=== PATIENT | female | born 1965 | race Caucasian/White ===

== ENCOUNTER 2017-05-14 13:24 | Inpatient (IN) | payer MEDICAID ==
[~2017-05-14] VITALS: Ht 170.2 cm; Wt 124.9 kg
[~2017-05-14 13:24] MED LIST: DICL25CA4 PO; DICL50TA4 PO; LEVE500T53 PO; NORE-74 PO; PROM12.55 PO; SULF-169 PO
[2017-05-14 13:55] LABS: BASOPHILS # (AUTO) 0.09 x10^3/uL (0-0.1); BASOPHILS % (AUTO) 2 % (0-1); EOSINOPHILS # (AUTO) 0.19 x10^3/uL (0-0.4); EOSINOPHILS % (AUTO) 3 % (1-7); LYMPHOCYTES % (AUTO) 30 % (22-44); MD NO; MEAN CORPUSCULAR HGB CONC 33.2 g/dL (32.4-35.8); MEAN CORPUSCULAR VOLUME 81.3 fL (80-100); MEAN PLATELET VOLUME 7.9 fL (7.4-10.4); MONOCYTES % (AUTO) 7 % (2-9); NEUTROPHILS # (AUTO) 3.27 x10^3/uL (1.8-6.8); NEUTROPHILS % (AUTO) 58 % (42-75); PLATELET COUNT 373 x10^3/uL (130-400); RED BLOOD COUNT 4.81 x10^6/uL (3.82-5.3); RED CELL DISTRIBUTION WIDTH 19.5 % (9.6-15.2)
[2017-05-14 14:26] LABS: TROPONIN I < 0.015 ng/mL (0.000-0.045)
[2017-05-14 14:28] LABS: ALANINE AMINOTRANSFERASE 14 U/L (12-78); ALBUMIN 1.1 g/dL (3.4-5.0); ANION GAP 8 mmol/L (5-15); CALCIUM 7.4 mg/dL (8.5-10.1); CHLORIDE 108 mmol/L (98-107); CREATININE 1.04 mg/dL (0.55-1.02)
[2017-05-14 14:32] LABS: ALKALINE PHOSPHATASE 91 U/L (45-117); BILIRUBIN,TOTAL 0.3 mg/dL (0.2-1.0); TOTAL PROTEIN 4.2 g/dL (6.4-8.2)
[2017-05-14] MEDS ORDERED: SODIUM CHLORIDE FLUSH 10ML SYR IVF ONE (15:30)
[2017-05-14 15:44] LABS: INTERNATIONAL NORMALIZED RATIO 0.87 (0.93-1.1); PROTHROMBIN TIME 9.1 Seconds (9.6-11.5)
[2017-05-14] MEDS ORDERED: OMNIPAQUE 350 MG/ML, 100ML BOTTLE ONE (15:53)
[2017-05-14 16:32] LABS: MICROSCOPIC INDICATED
[2017-05-14 16:47] LABS: C-REACTIVE PROTEIN, QUANT 0.07 mg/dL (0.02-0.49)
[2017-05-14 16:51] LABS: T4 (THYROXINE) 6.1 mcg/dL (4.8-13.9)
[2017-05-14] MEDS: ALBUMIN HUMAN 25% 100 ML IV ONE ×2 (16:52→17:40)
[2017-05-14] MEDS ORDERED: FUROSEMIDE 40 MG/4 ML IV ONE (18:00)
[2017-05-14 18:01] VITALS: BP 137/86
[2017-05-14 19:10] VITALS: BP 124/73
[2017-05-14 23:55] LABS: CLOSTRIDIUM DIFFICILE ANTIGEN NEGATIVE; CLOSTRIDIUM DIFFICILE TOXIN NEGATIVE (Negative)
[2017-05-15 01:25] VITALS: BP 129/80
[2017-05-15] MEDS ORDERED: ALBUMIN HUMAN 25% 100 ML IV SCH (05:00)
[2017-05-15] MEDS ORDERED: FUROSEMIDE 20 MG/2 ML IV SCH (06:00)
[2017-05-15 08:23] VITALS: BP 127/80
[2017-05-15] MEDS ORDERED: ERGOCALCIFEROL 50,000 UNIT CAPSULE PO SCH (09:00)
[2017-05-15] MEDS: ACETAMINOPHEN 325 MG TABLET PO PRN (09:03)
[2017-05-15 09:46] LABS: ANION GAP 6 mmol/L (5-15); CALCIUM 7.3 mg/dL (8.5-10.1); CHLORIDE 108 mmol/L (98-107); CREATININE 0.97 mg/dL (0.55-1.02)
[2017-05-15] MEDS ORDERED: TOPIRAMATE 25 MG TABLET ONE ×2 (09:54→09:55)
[2017-05-15] MEDS ORDERED: TOPIRAMATE 100 MG TABLET PO ONE (10:00)
[2017-05-15] MEDS ORDERED: SUMATRIPTAN 100 MG TABLET ONE (10:35)
[2017-05-15] MEDS: SUMATRIPTAN 100 MG TABLET PO PRN (10:37)
[2017-05-15 11:07] LABS: CREATININE,URINE RANDOM 72.3 mg/dL
[2017-05-15 13:54] VITALS: BP 140/79
[2017-05-15] MEDS: ALBUMIN HUMAN 25% 100 ML IV SCH (17:17)
[2017-05-15] MEDS: FUROSEMIDE 20 MG/2 ML IV SCH (18:40)
[2017-05-15 18:50] VITALS: BP 138/90
[2017-05-16 01:51] VITALS: BP 139/87
[2017-05-16 05:37] LABS: BASOPHILS # (AUTO) 0.04 x10^3/uL (0-0.1); BASOPHILS % (AUTO) 1 % (0-1); EOSINOPHILS % (AUTO) 8 % (1-7); LYMPHOCYTES # (AUTO) 1.53 x10^3/uL (1-3.4); LYMPHOCYTES % (AUTO) 30 % (22-44); MD NO; MEAN CORPUSCULAR HEMOGLOBIN 27.5 pg (27.0-34.8); MEAN CORPUSCULAR HGB CONC 33.2 g/dL (32.4-35.8); MEAN CORPUSCULAR VOLUME 82.7 fL (80-100); MEAN PLATELET VOLUME 8.2 fL (7.4-10.4); MONOCYTES # (AUTO) 0.48 x10^3/uL (0.2-0.8); MONOCYTES % (AUTO) 10 % (2-9); NEUTROPHILS # (AUTO) 2.59 x10^3/uL (1.8-6.8); NEUTROPHILS % (AUTO) 51 % (42-75); PLATELET COUNT 278 x10^3/uL (130-400); RED BLOOD COUNT 3.89 x10^6/uL (3.82-5.3); RED CELL DISTRIBUTION WIDTH 19.2 % (9.6-15.2)
[2017-05-16 05:40] LABS: INTERNATIONAL NORMALIZED RATIO 0.91 (0.93-1.1); PROTHROMBIN TIME 9.4 Seconds (9.6-11.5)
[2017-05-16 05:45] LABS: CALCIUM 7.4 mg/dL (8.5-10.1); CHLORIDE 110 mmol/L (98-107)
[2017-05-16 05:48] LABS: ALBUMIN 1.5 g/dL (3.4-5.0); ANION GAP 8 mmol/L (5-15); CREATININE 0.79 mg/dL (0.55-1.02)
[2017-05-16] MEDS: ALBUMIN HUMAN 25% 100 ML IV SCH ×3 (06:13→21:53)
[2017-05-16] MEDS: FUROSEMIDE 20 MG/2 ML IV SCH ×3 (08:52→23:39)
[2017-05-16 08:54] VITALS: BP_SYST 139; BP_SYST 140; BP_DIAS 87; BP_DIAS 89
[2017-05-16] MEDS ORDERED: MIDAZOLAM 1 MG/ML, 5ML ONE (13:04)
[2017-05-16] MEDS ORDERED: FLUMAZENIL 0.1 MG/1 ML, 5ML ONE (13:04)
[2017-05-16] MEDS ORDERED: NALOXONE 1 MG/ML, 2ML ONE (13:04)
[2017-05-16] MEDS ORDERED: FENTANYL PF 100 MCG/2ML ONE ×2 (13:04)
[2017-05-16 14:34] VITALS: BP 158/83
[2017-05-16] MEDS: SUMATRIPTAN 100 MG TABLET PO PRN (16:02)
[2017-05-16] MEDS: ACETAMINOPHEN 325 MG TABLET PO PRN (17:42)
[2017-05-16 20:03] VITALS: BP 138/82
[2017-05-17 02:53] VITALS: BP 142/84
[2017-05-17 07:50] VITALS: BP 168/78
[2017-05-17] MEDS: ALBUMIN HUMAN 25% 100 ML IV SCH ×3 (08:17→17:17)
[2017-05-17] MEDS: LISINOPRIL 10 MG TABLET PO SCH (09:25)
[2017-05-17 09:51] LABS: BASOPHILS # (AUTO) 0.02 x10^3/uL (0-0.1); BASOPHILS % (AUTO) 0 % (0-1); EOSINOPHILS # (AUTO) 0.28 x10^3/uL (0-0.4); EOSINOPHILS % (AUTO) 6 % (1-7); LYMPHOCYTES # (AUTO) 1.21 x10^3/uL (1-3.4); LYMPHOCYTES % (AUTO) 25 % (22-44); MD NO; MEAN CORPUSCULAR HEMOGLOBIN 27.7 pg (27.0-34.8); MEAN CORPUSCULAR HGB CONC 33.4 g/dL (32.4-35.8); MEAN PLATELET VOLUME 7.8 fL (7.4-10.4); MONOCYTES # (AUTO) 0.38 x10^3/uL (0.2-0.8); MONOCYTES % (AUTO) 8 % (2-9); NEUTROPHILS # (AUTO) 3.02 x10^3/uL (1.8-6.8); NEUTROPHILS % (AUTO) 62 % (42-75); PLATELET COUNT 294 x10^3/uL (130-400); RED BLOOD COUNT 3.95 x10^6/uL (3.82-5.3); RED CELL DISTRIBUTION WIDTH 19.4 % (9.6-15.2)
[2017-05-17 09:54] LABS: ANION GAP 7 mmol/L (5-15); CALCIUM 7.6 mg/dL (8.5-10.1); CHLORIDE 110 mmol/L (98-107); CREATININE 0.86 mg/dL (0.55-1.02)
[2017-05-17] MEDS: FUROSEMIDE 20 MG/2 ML IV SCH ×3 (10:22→18:37)
[2017-05-17 13:36] LABS: ANA SCREEN NEGATIVE (Negative)
[2017-05-17 13:39] LABS: ANA SCREEN NEGATIVE (Negative)
[2017-05-17 15:05] VITALS: BP 131/82
[2017-05-17 19:54] VITALS: BP 135/78
[2017-05-18 04:28] VITALS: BP 145/89
[2017-05-18] MEDS: SUMATRIPTAN 100 MG TABLET PO PRN ×2 (07:58→20:24)
[2017-05-18] MEDS: ALBUMIN HUMAN 25% 100 ML IV SCH ×3 (08:51→17:09)
[2017-05-18 08:53] VITALS: BP 169/97
[2017-05-18] MEDS: LISINOPRIL 10 MG TABLET PO SCH (09:14)
[2017-05-18] MEDS: FUROSEMIDE 20 MG/2 ML IV SCH ×3 (11:37→18:37)
[2017-05-18] MEDS ORDERED: FAMOTIDINE 20 MG TABLET PO ONE (13:00)
[2017-05-18] MEDS ORDERED: DIPHENHYDRAMINE 50 MG CAPSULE PO PRN (13:30)
[2017-05-18 14:15] VITALS: BP 164/95
[2017-05-18] MEDS: METOLAZONE 2.5 MG TABLET PO SCH (16:08)
[2017-05-18] MEDS: ACETAMINOPHEN 325 MG TABLET PO PRN (18:37)
[2017-05-18 19:36] VITALS: BP 150/90
[2017-05-18] MEDS: ONDANSETRON 4 MG TABLET PO PRN (22:02)
[2017-05-19 02:45] VITALS: BP 167/88
[2017-05-19 07:49] VITALS: BP 163/89
[2017-05-19] MEDS: ALBUMIN HUMAN 25% 100 ML IV SCH ×3 (07:56→16:27)
[2017-05-19] MEDS: METOLAZONE 2.5 MG TABLET PO SCH (07:57)
[2017-05-19] MEDS: LISINOPRIL 10 MG TABLET PO SCH (07:57)
[2017-05-19] MEDS: SUMATRIPTAN 100 MG TABLET PO PRN ×2 (08:10→22:25)
[2017-05-19] MEDS: ONDANSETRON 4 MG TABLET PO PRN ×3 (08:44→21:03)
[2017-05-19] MEDS: FUROSEMIDE 20 MG/2 ML IV SCH ×3 (08:44→17:07)
[2017-05-19] MEDS ORDERED: LISINOPRIL 10 MG TABLET PO SCH (09:00)
[2017-05-19] MEDS ORDERED: METOLAZONE 2.5 MG TABLET PO SCH (09:00)
[2017-05-19] MEDS: METOLAZONE 5 MG TABLET PO SCH ×2 (09:10→09:47)
[2017-05-19] MEDS: LISINOPRIL 20 MG TABLET PO SCH ×2 (09:10→09:48)
[2017-05-19] MEDS: ACETAMINOPHEN 325 MG TABLET PO PRN (13:22)
[2017-05-19 15:20] VITALS: BP 151/87
[2017-05-19 15:27] VITALS: BP 134/75
[2017-05-19] MEDS ORDERED: TOPIRAMATE 100 MG TABLET PO ONE (17:00)
[2017-05-19] MEDS ORDERED: TOPIRAMATE 25 MG TABLET ONE (17:04)
[2017-05-19 19:34] VITALS: BP 156/81
[2017-05-20 00:51] VITALS: BP 148/92
[2017-05-20 07:45] VITALS: BP 140/76
[2017-05-20] MEDS: METOLAZONE 5 MG TABLET PO SCH (07:46)
[2017-05-20] MEDS: ALBUMIN HUMAN 25% 100 ML IV SCH ×3 (07:46→16:54)
[2017-05-20] MEDS: LISINOPRIL 20 MG TABLET PO SCH (07:47)
[2017-05-20] MEDS: FUROSEMIDE 20 MG/2 ML IV SCH ×3 (08:34→17:59)
[2017-05-20 08:45] LABS: ALBUMIN 2.6 g/dL (3.4-5.0); ANION GAP 8 mmol/L (5-15); CALCIUM 8.2 mg/dL (8.5-10.1); CHLORIDE 103 mmol/L (98-107); CREATININE 1.41 mg/dL (0.55-1.02)
[2017-05-20] MEDS: SUMATRIPTAN 100 MG TABLET PO PRN ×2 (09:02→21:45)
[2017-05-20] MEDS: ONDANSETRON 4 MG TABLET PO PRN ×2 (09:02→19:57)
[2017-05-20] MEDS: POTASSIUM CHLORIDE 20 MEQ TAB.ER.PRT PO SCH (10:42)
[2017-05-20] MEDS: ACETAMINOPHEN 325 MG TABLET PO PRN ×2 (11:28→16:54)
[2017-05-20 13:45] VITALS: BP 143/74
[2017-05-20] MEDS ORDERED: PRED20TA PO (16:53)
[2017-05-20] MEDS ORDERED: LISI-170 PO (16:53)
[2017-05-20] MEDS ORDERED: SUMA100T3 PO (16:53)
[2017-05-20] MEDS ORDERED: METO5TAB5 PO (16:53)
[2017-05-20] MEDS ORDERED: POTA20TA6 PO (16:53)
[2017-05-20] MEDS ORDERED: FURO80TA3 PO (16:53)
[2017-05-20 19:52] VITALS: BP 158/90
[2017-05-21 00:16] VITALS: BP 164/96
[2017-05-21 07:20] VITALS: BP 146/90
[2017-05-21] MEDS: LISINOPRIL 20 MG TABLET PO SCH (08:18)
[2017-05-21] MEDS: METOLAZONE 5 MG TABLET PO SCH (08:19)
[2017-05-21] MEDS: POTASSIUM CHLORIDE 20 MEQ TAB.ER.PRT PO SCH (08:19)
== END 2017-05-21 14:36 | disposition home or self-care (01) | DRG 682 ==
LOC: ED 14:00 → EDIP 16:18 → 3NW 17:47
PROVIDERS: ADMIT Internal Medicine; ATTEND Internal Medicine
PROC: 0TB13ZX Excision of Left Kidney, Percutaneous Approach, Diagnostic (ICD-10-PCS; principal; 2017-05-16)
DX: I12.9 Hypertensive chronic kidney disease with stage 1 through stage 4 chronic kidney disease, or unspecified chronic kidney disease (principal); E43 Unspecified severe protein-calorie malnutrition; N18.3 Chronic kidney disease, stage 3 (moderate); Z68.41 Body mass index [BMI] 40.0-44.9, adult; E66.9 Obesity, unspecified; G40.909 Epilepsy, unspecified, not intractable, without status epilepticus; R68.81 Early satiety; E83.51 Hypocalcemia; G43.909 Migraine, unspecified, not intractable, without status migrainosus; T50.2X5A Adverse effect of carbonic-anhydrase inhibitors, benzothiadiazides and other diuretics, initial encounter; Z87.441 Personal history of nephrotic syndrome; Z90.49 Acquired absence of other specified parts of digestive tract
CPT/HCPCS: 36415; 47000; 70450; 71046; 74177; 77012; 80048; 80053; 80074; 81001; 82040; 82306; 82330; 82570; 82607; 83520; 83735; 83880; 83970; 84155; 84156; 84165; 84166; 84436; 84443; 84481; 84484; 85025; 85610; 85730; 86038; 86140; 86160; 86162; 86256; 86304; 87324; 87806; 88300; 88329; 93005; 96374; 99156; 99157; J1940; J2250; J3010; P9047; Q0162; Q9967; G0475; J2310; J7512

== ENCOUNTER 2017-06-02 13:30 | Inpatient (IN) | payer MEDICAID ==
[~2017-06-02] VITALS: Ht 170.2 cm; Wt 103.0 kg
[~2017-06-02 13:30] MED LIST changes: +FURO80TA3 PO; +LISI-170 PO; +METO5TAB5 PO; +POTA20TA6 PO; +PRED20TA PO; +SUMA100T3 PO
[2017-06-02 15:24] LABS: BASOPHILS # (AUTO) 0.06 x10^3/uL (0-0.1); BASOPHILS % (AUTO) 1 % (0-1); EOSINOPHILS # (AUTO) 0.04 x10^3/uL (0-0.4); EOSINOPHILS % (AUTO) 0 % (1-7); LYMPHOCYTES # (AUTO) 1.02 x10^3/uL (1-3.4); LYMPHOCYTES % (AUTO) 9 % (22-44); MD NO; MEAN CORPUSCULAR HEMOGLOBIN 27.5 pg (27.0-34.8); MEAN CORPUSCULAR HGB CONC 33.2 g/dL (32.4-35.8); MEAN PLATELET VOLUME 7.8 fL (7.4-10.4); MONOCYTES % (AUTO) 1 % (2-9); NEUTROPHILS % (AUTO) 89 % (42-75); PLATELET COUNT 483 x10^3/uL (130-400); RED BLOOD COUNT 4.95 x10^6/uL (3.82-5.3); RED CELL DISTRIBUTION WIDTH 20.4 % (9.6-15.2)
[2017-06-02 15:34] LABS: ALANINE AMINOTRANSFERASE 27 U/L (12-78); ALBUMIN 2.2 g/dL (3.4-5.0); CALCIUM 8.5 mg/dL (8.5-10.1); CREATININE 2.53 mg/dL (0.55-1.02)
[2017-06-02 15:38] LABS: ALKALINE PHOSPHATASE 70 U/L (45-117); BILIRUBIN,TOTAL 0.3 mg/dL (0.2-1.0); TOTAL PROTEIN 6.3 g/dL (6.4-8.2); TROPONIN I < 0.015 ng/mL (0.000-0.045)
[2017-06-02 15:52] LABS: ANION GAP 13 mmol/L (5-15); CHLORIDE 96 mmol/L (98-107)
[2017-06-02] MEDS ORDERED: INSULIN REGULAR 100 UNITS/ML, 3ML VIAL IVPush ONE (16:00)
[2017-06-02] MEDS ORDERED: SODIUM BICARB 8.4%, 50ML SYRINGE IVPush ONE (16:00)
[2017-06-02] MEDS ORDERED: FUROSEMIDE 40 MG/4 ML IVPush ONE (16:00)
[2017-06-02] MEDS ORDERED: DEXTROSE 50%, 50ML SYRINGE IVPush ONE (16:00)
[2017-06-02] MEDS ORDERED: DEXTROSE 50%, 50ML SYRINGE ONE (16:30)
[2017-06-02] MEDS ORDERED: SODIUM BICARB 8.4%, 50ML SYRINGE ONE (16:30)
[2017-06-02] MEDS ORDERED: FUROSEMIDE 40 MG/4 ML ONE (16:30)
[2017-06-02] MEDS ORDERED: INSULIN REGULAR 100 UNITS/ML, 3ML VIAL ONE (16:31)
[2017-06-02] MEDS ORDERED: FURO20TA3 PO (17:14)
[2017-06-02] MEDS ORDERED: ONDANSETRON 2MG/ML, 2ML IVPush PRN (17:30)
[2017-06-02] MEDS ORDERED: ONDANSETRON ODT 4 MG PO PRN (17:30)
[2017-06-02] MEDS ORDERED: LABETALOL 5MG/ML, 20ML IVPush PRN (17:30)
[2017-06-02 18:40] LABS: MICROSCOPIC NOT IND
[2017-06-02 18:43] VITALS: BP 91/56
[2017-06-02 18:51] LABS: CULTURE INDICATED? NO
[2017-06-02 20:59] LABS: ANION GAP 10 mmol/L (5-15); CALCIUM 8.1 mg/dL (8.5-10.1); CHLORIDE 97 mmol/L (98-107); CREATININE 2.33 mg/dL (0.55-1.02)
[2017-06-02 23:00] VITALS: BP_SYST 109; BP_SYST 78; BP_DIAS 53; BP_DIAS 61
[2017-06-02] MEDS ORDERED: KETOROLAC 30 MG/1 ML IVPush ONE (23:00)
[2017-06-02] MEDS ORDERED: KETOROLAC 30 MG/1 ML ONE (23:02)
[2017-06-02 23:10] VITALS: BP 124/59
[2017-06-02 23:28] VITALS: BP 109/71
[2017-06-02 23:34] LABS: TROPONIN I < 0.015 ng/mL (0.000-0.045)
[2017-06-03 01:56] VITALS: BP_SYST 114; BP_SYST 79; BP_DIAS 51; BP_DIAS 76
[2017-06-03 05:50] LABS: BASOPHILS # (AUTO) 0.05 x10^3/uL (0-0.1); BASOPHILS % (AUTO) 0 % (0-1); EOSINOPHILS # (AUTO) 0.06 x10^3/uL (0-0.4); EOSINOPHILS % (AUTO) 1 % (1-7); LYMPHOCYTES # (AUTO) 3.69 x10^3/uL (1-3.4); LYMPHOCYTES % (AUTO) 34 % (22-44); MD NO; MEAN CORPUSCULAR HEMOGLOBIN 27.7 pg (27.0-34.8); MEAN CORPUSCULAR HGB CONC 33.2 g/dL (32.4-35.8); MEAN CORPUSCULAR VOLUME 83.6 fL (80-100); MEAN PLATELET VOLUME 7.8 fL (7.4-10.4); MONOCYTES % (AUTO) 6 % (2-9); NEUTROPHILS # (AUTO) 6.39 x10^3/uL (1.8-6.8); NEUTROPHILS % (AUTO) 59 % (42-75); PLATELET COUNT 399 x10^3/uL (130-400); RED BLOOD COUNT 4.62 x10^6/uL (3.82-5.3); RED CELL DISTRIBUTION WIDTH 20.5 % (9.6-15.2)
[2017-06-03 06:00] LABS: ANION GAP 6 mmol/L (5-15); CALCIUM 8.4 mg/dL (8.5-10.1); CHLORIDE 97 mmol/L (98-107); CREATININE 1.83 mg/dL (0.55-1.02)
[2017-06-03 06:04] LABS: TROPONIN I < 0.015 ng/mL (0.000-0.045)
[2017-06-03 08:00] VITALS: BP 93/70
[2017-06-03] MEDS: SENNA/DOCUSATE TABLET PO SCH (09:10)
[2017-06-03] MEDS ORDERED: SODIUM CHLORIDE 0.9%, 250ML IVBOLUS ONE (10:30)
[2017-06-03] MEDS ORDERED: SODIUM CHLORIDE 0.9% 1,000ML IVBOLUS ONE (11:00)
[2017-06-03] MEDS: SODIUM CHLORIDE 0.9% 1,000 ML IV SCH ×2 (13:11→23:12)
[2017-06-03 14:00] VITALS: BP 125/78
[2017-06-03] MEDS ORDERED: ACETAMINOPHEN 325 MG TABLET PO PRN (20:00)
[2017-06-03 20:36] VITALS: BP 110/78
[2017-06-04 01:49] VITALS: BP 107/73
[2017-06-04 07:18] LABS: BASOPHILS # (AUTO) 0.05 x10^3/uL (0-0.1); BASOPHILS % (AUTO) 1 % (0-1); EOSINOPHILS # (AUTO) 0.12 x10^3/uL (0-0.4); EOSINOPHILS % (AUTO) 1 % (1-7); LYMPHOCYTES # (AUTO) 3.17 x10^3/uL (1-3.4); LYMPHOCYTES % (AUTO) 34 % (22-44); MD NO; MEAN CORPUSCULAR HEMOGLOBIN 27.7 pg (27.0-34.8); MEAN CORPUSCULAR HGB CONC 33.5 g/dL (32.4-35.8); MEAN CORPUSCULAR VOLUME 82.6 fL (80-100); MEAN PLATELET VOLUME 7.6 fL (7.4-10.4); MONOCYTES # (AUTO) 0.55 x10^3/uL (0.2-0.8); MONOCYTES % (AUTO) 6 % (2-9); NEUTROPHILS # (AUTO) 5.46 x10^3/uL (1.8-6.8); NEUTROPHILS % (AUTO) 58 % (42-75); PLATELET COUNT 390 x10^3/uL (130-400); RED BLOOD COUNT 4.52 x10^6/uL (3.82-5.3); RED CELL DISTRIBUTION WIDTH 20.3 % (9.6-15.2)
[2017-06-04 07:28] LABS: ALBUMIN 2.1 g/dL (3.4-5.0); ANION GAP 6 mmol/L (5-15); CALCIUM 8.2 mg/dL (8.5-10.1); CHLORIDE 102 mmol/L (98-107); CREATININE 1.16 mg/dL (0.55-1.02)
[2017-06-04] MEDS: SODIUM CHLORIDE 0.9% 1,000 ML IV SCH (09:43)
[2017-06-04] MEDS ORDERED: REGADENOSON 0.4 MG/5 ML SYRINGE ONE (09:48)
[2017-06-04] MEDS: SENNA/DOCUSATE TABLET PO SCH (12:59)
[2017-06-04 13:04] VITALS: BP 122/84
== END 2017-06-04 16:55 | disposition home or self-care (01) | DRG 682 ==
LOC: ED 16:41 → EDIP 16:42 → ED 17:06 → 4EST 18:32
PROVIDERS: ADMIT Hospitalist; ATTEND Hospitalist
DX: N17.8 Other acute kidney failure (principal); E43 Unspecified severe protein-calorie malnutrition; I95.2 Hypotension due to drugs; E87.1 Hypo-osmolality and hyponatremia; E66.01 Morbid (severe) obesity due to excess calories; E87.5 Hyperkalemia; N14.1 Nephropathy induced by other drugs, medicaments and biological substances; N18.3 Chronic kidney disease, stage 3 (moderate); K21.9 Gastro-esophageal reflux disease without esophagitis; T50.2X5A Adverse effect of carbonic-anhydrase inhibitors, benzothiadiazides and other diuretics, initial encounter; Y92.89 Other specified places as the place of occurrence of the external cause; D72.829 Elevated white blood cell count, unspecified; E55.9 Vitamin D deficiency, unspecified; F32.9 Major depressive disorder, single episode, unspecified; G40.909 Epilepsy, unspecified, not intractable, without status epilepticus; I12.9 Hypertensive chronic kidney disease with stage 1 through stage 4 chronic kidney disease, or unspecified chronic kidney disease; N04.0 Nephrotic syndrome with minor glomerular abnormality; T38.0X5A Adverse effect of glucocorticoids and synthetic analogues, initial encounter; T46.4X5A Adverse effect of angiotensin-converting-enzyme inhibitors, initial encounter; Z79.899 Other long term (current) drug therapy; Z82.5 Family history of asthma and other chronic lower respiratory diseases; Z87.891 Personal history of nicotine dependence; Z98.51 Tubal ligation status; R73.9 Hyperglycemia, unspecified; G43.909 Migraine, unspecified, not intractable, without status migrainosus; Z68.35 Body mass index [BMI] 35.0-35.9, adult
CPT/HCPCS: 36415; 71045; 78452; 80048; 80053; 81003; 82040; 82962; 83735; 84100; 84439; 84443; 84484; 85025; 93005; 93017; 96374; 96375; J1885; J1940; J2785; A9502; C9898; J7030; J7512